=== PATIENT | female | born 1965 | race Caucasian/White ===

== ENCOUNTER 2017-06-28 14:32 | Emergency (ER) | payer OTHER ==
[~2017-06-28] VITALS: Ht 175.3 cm; Wt 90.7 kg
--- NOTE | 2017-06-28 15:59 | NUR ---
PT DECIDED NOT TO WAIT FOR THE ART MUSEUM DOCENT - [id number]
== END 2017-06-28 15:59 | disposition left against medical advice (07) ==
LOC: ER 14:36
DX: Z53.21 Procedure and treatment not carried out due to patient leaving prior to being seen by health care provider (principal)
CPT/HCPCS: A4663